=== PATIENT | male | born 1955 | race Caucasian/White ===

== ENCOUNTER → 2017-07-19 | Outpatient (CLI) | payer BC ==
--- NOTE | 2017-07-19 14:36 | DIAGNOSTIC IMAGING REPORT ---
SOFT TISS HEAD/NECK-THYROID HISTORY: Thyroid nodule THYROID NODULE COMPARISON: 07/11/2015 FINDINGS: Right lobe: Maximum dimension 5.1 cm. Several small sub-4 mm hypoechoic nodules. Left lobe: Maximum dimension 5.1 cm. Several small hypoechoic nodules measuring no more than 5 mm. Isthmus: No nodules. IMPRESSION: Findings consistent with a multinodular thyroid. Nodules appear to be similar with no major change compared to the prior 2 studies. The above report was generated using voice recognition software. It may contain grammatical, syntax or spelling errors. Electronically signed by: Juanpablo Oliver M.D. 07/19/2017 2:35 PM Dictated Date/Time: 07/19/2017 2:34 PM
== END | disposition home or self-care (01) ==
LOC: C.ULTR 13:32
PROVIDERS: ATTEND Family Medicine
DX: E04.1 Nontoxic single thyroid nodule (principal)

== ENCOUNTER 2017-09-29 13:49 | Emergency (ER) | payer BC, OTHER ==
[~2017-09-29] VITALS: Ht 190.5 cm; Wt 84.1 kg
[2017-09-29 14:13] VITALS: Ht 190.5 cm; Wt 84.1 kg
[2017-09-29] MEDS ORDERED: LISI-787 PO (14:31)
[2017-09-29] MEDS ORDERED: ATOR-24 PO (14:31)
[2017-09-29] MEDS ORDERED: SYMIN160 INH (14:31)
[2017-09-29] MEDS ORDERED: BUDE1SUS8 NAE (14:31)
[2017-09-29] MEDS ORDERED: QVRINH80 INH (14:31)
[2017-09-29] MEDS ORDERED: OMEP20CA9 PO (14:31)
[2017-09-29] MEDS ORDERED: ASPI81TA28 PO (14:31)
--- NOTE | 2017-09-29 15:18 | EMERGENCY ROOM VISIT NOTE ---
History First contact with patient: 14:26 Chief Complaint: EYE ASSESSMENT Stated Complaint: RIGHT EYE FLOATER/FLASHING History of Present Illness The patient is a 62 year old male who presents to the Emergency Room with complaints of floaters in his right eye. The patient reports that he developed a large floater in his right eye in the shape of a spider web 4 days ago. He states that this persisted through the next 3 days. The patient noticed last night that he also had flashes of light in the periphery of his vision. He states that the floaters have increased and now looks like there is dirt across his vision. His overall vision is not decreased. He denies any pain in the eye or headache. He denies any recent trauma. He reports that he has been told he has cataracts but denies any other history of ophthalmological problems. Review of Systems A complete 10 point review of systems was reviewed with the patient with pertinent positives and negatives as per history of present illness. All else were negative. Past Medical/Surgical History No active problems Social History Smoking Status: Never Smoker Housing Status: lives with significant other Current/Historical Medications Scheduled Aspirin (Aspirin Ec), 81 MG PO DAILY Atorvastatin (Lipitor), 40 MG PO DAILY Beclomethasone Dip (Qvar), 2 PUFF INH BID Budesonide (Nasal) (Rhinocort Allergy), 1 SPRAY AMOS DAILY Budesonide/Formoterol Fumarate (Symbicort 160/4.5 Inhaler), 2 PUFFS INH BID Lisinopril/Hctz (Zestoretic 20MG/12.5MG), 1 TAB PO DAILY Omeprazole (Prilosec), Unknown Dose PO DAILY Physical Exam Vital Signs Date Time Temp Pulse Resp B/P (MAP) Pulse Ox O2 Delivery O2 Flow Rate FiO2 09/29/17 15:22 36.5 94 18 143/87 95 09/29/17 14:13 36.5 94 18 143/87 95 Room Air Right Eye Acuity: 20/25 Left Eye Acuity: 20/25 Physical Exam VITALS: Vitals are noted on the nurse's note and reviewed by myself. Vital signs stable. GENERAL: This is a 62-year-old male, in no acute distress, nondiaphoretic, well- developed well-nourished. EYES: Pupils equal round and reactive to light and accommodation. Extraocular movements intact. Funduscopic exam without papilledema. Slit-lamp exam shows no corneal abnormalities. Anterior chamber is normal. Intraocular pressures measure 12 mmHg bilaterally. NEURO: Patient was alert and oriented to person place and time. Medical Decision & Procedures Medical Decision Differential diagnosis includes vitreous floaters, retinal detachment, retinal tear, among others. The patient was evaluated as above. I am concerned for retinal detachment. Ophthalmology was consulted and Dr. Sim agreed to see the patient in the office this afternoon. The patient will be sent directly to the ophthalmology office for evaluation. He verbalized understanding of my assessment and treatment plan and was discharged home in good condition. Medication Reconcilliation Current Medication List: was personally reviewed by me Blood Pressure Screening Patient's blood pressure: Elevated blood pressure Blood pressure disposition: Elevated BP felt to be situational Impression Primary Impression: Floaters in visual field Departure Information Dispostion Home / Self-Care Condition GOOD Referrals Ridge Lopez M.D. (PCP) Derrick Sim D.O. Patient Instructions [facility] Additional Instructions Dr. Sim will meet you in his office at 4:00 PM. Go directly to the office. Problem Qualifiers Primary Impression: Floaters in visual field Laterality: right Qualified Codes: H43.391 - Other vitreous opacities, right eye
[2017-09-29 15:22] VITALS: BP 143/87; PULSE 94; TEMP 36.5; O2SAT 95
== END 2017-09-29 15:23 | disposition home or self-care (01) ==
LOC: C.EDB 13:50 → C.EDD 15:23
DX: H43.391 Other vitreous opacities, right eye (principal); Z79.82 Long term (current) use of aspirin; Z79.899 Other long term (current) drug therapy

== ENCOUNTER → 2017-12-17 | Outpatient (CLI) | payer OTHER ==
[~2017-12-17] MED LIST: ASPI81TA28 PO; ATOR-24 PO; BUDE1SUS8 NAE; LISI-787 PO; OMEP20CA9 PO; QVRINH80 INH; SYMIN160 INH
--- NOTE | 2017-12-17 12:25 | DIAGNOSTIC IMAGING REPORT ---
L-SPINE MIN 4 VIEWS ROUTINE CLINICAL HISTORY: 62 years-old Male presenting with LOW BACK PAIN M54.5. TECHNIQUE: Frontal, bilateral oblique, lateral, and coned in lateral views of the lumbar spine were obtained. COMPARISON: None. FINDINGS: No scoliosis. Normal lumbar lordosis. Vertebral bodies maintain normal height and alignment. Intervertebral disc heights preserved. Mild osteophytosis evident. No compression deformity or subluxation. No advanced degenerative change. No gross evidence of significant osseous neural foraminal narrowing. No pars defect. Mild stool burden. IMPRESSION: Mild degenerative changes of the lumbar spine. No radiographic evidence of compression deformity or significant osseous neural foraminal narrowing. Electronically signed by: Erick Meeks M.D. 12/17/2017 12:23 PM Dictated Date/Time: 12/17/2017 12:22 PM
== END | disposition home or self-care (01) ==
LOC: C.RADBC 11:24
PROVIDERS: ATTEND Nurse Practitioner Family
DX: M47.816 Spondylosis without myelopathy or radiculopathy, lumbar region (principal)